=== PATIENT | female | born 1970 | race Caucasian/White ===

== ENCOUNTER 2016-06-30 09:05 | Observation (INO) | payer OTHER ==
[2016-06-09 14:38] VITALS: BMI 32.0
--- NOTE | 2016-06-09 15:12 | PAT Medication Instructions ---
Service Date Jun 09, 2016. Current Home Medication List Albuterol Inhaler (Ventolin Inhaler), 2 PUFFS INH Q4H PRN for PRN Atorvastatin (Lipitor), 40 MG PO HS Baclofen (Lioresal), 10 MG PO TID Bupropion (Wellbutrin), 100 MG PO HS Carvedilol (Coreg Cr), 40 MG PO BID Fluticasone Propionate (Nasal) (Flonase), 2 SPRAYS INTNAS DAILY Lisinopril (Lisinopril), 40 MG PO HS Metformin Hcl (Glucophage), 500 MG PO QPM Montelukast Sodium (Singulair), 10 MG PO HS Pantoprazole (Protonix), 40 MG PO QAM Quetiapine Fumarate (Seroquel), 400 MG PO HS Ranitidine Hcl (Zantac), 150 MG PO HS Sertraline Hcl (Zoloft), 150 MG PO QPM Trazodone Hcl (Trazodone), 400 MG PO HS Ziprasidone Hcl (Geodon), 80 MG PO HS Medication Instructions For Your Scheduled Surgery - Hold the following medications 48 hours prior to surgery: Metformin Hcl (Glucophage), 500 MG PO QPM - Hold the following medications the morning of surgery: Baclofen (Lioresal), 10 MG PO TID - Take the following medications the morning of surgery with a sip of water OTHERWISE NOTHING TO EAT OR DRINK AFTER MIDNIGHT: Pantoprazole (Protonix), 40 MG PO QAM Carvedilol (Coreg Cr), 40 MG PO BID Albuterol Inhaler (Ventolin Inhaler), 2 PUFFS INH Q4H PRN for PRN (use if needed ; BRING TO HOSPITAL) Fluticasone Propionate (Nasal) (Flonase), 2 SPRAYS INTNAS DAILY - Take the following medications as scheduled the night before surgery: Carvedilol (Coreg Cr), 40 MG PO BID Atorvastatin (Lipitor), 40 MG PO HS Bupropion (Wellbutrin), 100 MG PO HS Montelukast Sodium (Singulair), 10 MG PO HS Quetiapine Fumarate (Seroquel), 400 MG PO HS Ranitidine Hcl (Zantac), 150 MG PO HS Sertraline Hcl (Zoloft), 150 MG PO QPM Trazodone Hcl (Trazodone), 400 MG PO HS Ziprasidone Hcl (Geodon), 80 MG PO HS Baclofen (Lioresal), 10 MG PO TID Albuterol Inhaler (Ventolin Inhaler), 2 PUFFS INH Q4H PRN for PRN - Do not take the following medications the night before surgery: Lisinopril (Lisinopril), 40 MG PO HS If you have any questions please call us at [phone] (Carmencita Gar PA-C) or [phone] or [phone]
[2016-06-09 15:41] LABS: BASO % 0.4 %; BASO ABS # 0.03 K/uL (0-0.2); COMPLETE YES; EOS % 3.6 %; HEMATOCRIT 47.5 % (37-47); IG% 0.2 %; LYMPH % 39.1 %; LYMPH ABS # 3.26 K/uL (1.2-3.4); MEAN CELL VOLUME 95.6 fL (80-100); MEAN CORPUSCULAR HEMOGLOBIN 32.4 pg (25-34); MEAN CORPUSCULAR HGB CONC 33.9 g/dl (32-36); MEAN PLATELET VOLUME 12.6 fL (7.4-10.4); MONO % 4.4 %; NEUT % 52.3 %; PLATELET COUNT 219 K/uL (130-400); RED BLOOD COUNT 4.97 M/uL (4.2-5.4); WHITE BLOOD COUNT 8.33 K/uL (4.8-10.8)
--- NOTE | 2016-06-09 15:47 | DIAGNOSTIC IMAGING REPORT ---
CHEST 2 VIEWS ROUTINE HISTORY: Preop. COMPARISON: Chest 11/14/2014. FINDINGS: The heart is normal in size. Lobular density within the right cardiophrenic angle favors a fixed hernia. This remains unchanged. Multiple old, healed right-sided rib fractures. No new focal lung consolidations. Linear densities at the right lung base consistent with subsegmental atelectasis. No pleural effusions. No pneumothorax. There is cervical spinal fusion hardware. There is a catheter along the right side of the neck, chest, and abdomen consistent with a ventriculoperitoneal shunt. IMPRESSION: 1. No acute process within the chest. 2. Stable lobular density within the right anterior cardiophrenic sulcus suggestive of a hernia. 3. Right-sided ventriculoperitoneal shunt catheter is noted. Electronically signed by: Bill Matta M.D. 06/09/2016 3:46 PM
[2016-06-09 15:57] LABS: INR 0.9 (0.9-1.1); PROTHROMBIN TIME (PATIENT) 9.8 SECONDS (9.0-12.0)
[2016-06-09 16:04] LABS: BUN/CREATININE RATIO 16.5 (10-20); CALCIUM 8.9 mg/dl (8.5-10.1); CREATININE 0.79 mg/dl (0.60-1.20)
--- NOTE | 2016-06-29 23:03 | HISTORY & PHYSICAL EXAMINATION ---
DATE OF ADMISSION: 06/30/2016 SUBJECTIVE CHIEF COMPLAINT: Right foot pain. HISTORY OF PRESENT ILLNESS: This is a patient, who has had a previous right foot surgery approximately 4 years ago, where she had mid-foot fusions performed. She originally had done well with the fusions; however, she developed [id number] mid-foot pain. She also began having contractures of her lesser toes. She later had a CT scan, which revealed arthritic change within the first tarsometatarsal joint as well as a nonunion of the second tarsometatarsal joint fusion. She is now being set up for surgical management. PAST MEDICAL HISTORY: History of [place], hypertension, hypercholesterolemia, asthma, anxiety and depression, acid reflux. FAMILY HISTORY: Noncontributory. SOCIAL HISTORY: The patient denies alcohol and tobacco use. ALLERGIES: No known drug allergies. CURRENT MEDICATIONS: Seroquel, trazodone, Geodon, Zoloft, Wellbutrin, Prinivil, Lipitor, metformin, baclofen, Protonix and Zantac. OBJECTIVE PHYSICAL EXAMINATION: GENERAL: The patient is alert and oriented x3, in no acute distress. She is a well-dressed, well-nourished 45-year-old female. Her affect is appropriate. CARDIOVASCULAR: Heart has a regular rhythm and rate without murmurs. Dorsalis pedis and posterior tibial pulses are +2/4. Capillary refill is less than 2 seconds. LUNGS: Clear to auscultation, bilateral. LYMPHATICS: No evidence of any swollen lymph nodes. MUSCULOSKELETAL: The patient has an antalgic gait favoring the right lower extremity. Upon inspection of the right lower extremity, there is swelling noted of the mid foot. There are well-healed surgical incisions over the dorsal and medial aspects of the right mid foot. The patient is noted to have flexion contractures of the second, third and fourth toes. There also appears to be a dislocation of the MTP joint of the second toe. With palpation, she has tenderness along the mid foot as well as tenderness along the second MTP joint and the 2nd, 3rd and 4th toes. There is decreased range of motion and strength noted of the right lower extremity. SKIN: As previously noted, there are well-healed surgical incisions over the dorsal and medial aspects of the right mid foot. NEUROLOGIC: Sensation is normal and intact distally. X-RAY EXAM: Multiple views of the right foot and CT scan of the right foot demonstrate osteoarthritic changes of the first tarsometatarsal joint fusion. There is hardware crossing from the first cuneiform to the second and to the third cuneiform as well as hardware at the second and third tarsometatarsal joints with fusion. The second tarsometatarsal joint appears to be only partially healed. ASSESSMENT AND DIAGNOSES: 1. Right foot osteoarthritis of the first tarsometatarsal joint. 2. Nonunion of attempted fusion, second tarsometatarsal joint. 3. Retained hardware in the second and third tarsometatarsal joints and the first and third intercuneiform joints. 4. Claw toe deformities of the second, third and fourth toes, right foot. 5. Dislocated metatarsophalangeal joint, second metatarsophalangeal, right foot. PLAN: The above assessment was discussed with the patient. At this time, it was recommended that the patient undergo a right foot first tarsometatarsal joint fusion with revision of fusion of the second tarsometatarsal joint; second MTP DuVries arthroplasty of the metatarsal head; second, third and fourth toe PIP joint DuVries arthroplasties; second, third and fourth toe flexor tenotomies; second, third and fourth toe extensor lengthening; exostectomy of the cuneiforms and possible removal of hardware from the right mid foot. All potential risks, benefits, complications, alternatives and rehab have been discussed with the patient. At this time, she wishes to proceed with the surgery as indicated. She will be scheduled for the surgery on 06/30/2016.
[2016-06-30] VITALS (8 sets, daily range): BP systolic 107–124; BP diastolic 67–85; PULSE 75–88; TEMP 36.4–36.7; O2SAT 91–94; BMI 32.0; BMI 32.4
[~2016-06-30] VITALS: Ht 154.9 cm; Wt 77.7 kg
[~2016-06-30 09:05] MED LIST: ALBUAER19 INH; ATOR-24 PO; BACL10TA PO; BUPIVACAINE 0.5 % 5 MG/1 ML PF 10ML VIAL ONE; BUPR-83 PO; CLINDAMYCIN 600 MG/54 ML D5W IV SCH; CRGSR/40 PO; FLUT0.0529 INTNAS; GDN/80 PO; GLC/500 PO; LSN40 PO; MONT1TAB3 PO; PANT40TA PO; QUET1TAB13 PO; RANI150T3 PO; SERT1TAB68 PO; TRAZ100T29 PO
--- NOTE | 2016-06-30 13:39 | History & Physical Bridge Note ---
H&P Re-Evaluation Bridge Note: I have examined the patient, reviewed the History & Physical and in the interval since the performance of the History & Physical I have noted the following changes of clinical significance: No changes noted
[2016-06-30] MEDS ORDERED: FENTANYL CITRATE INJ 50 MCG/1 ML 2 ML VIAL ONE ×2 (14:20→15:34)
[2016-06-30] MEDS ORDERED: MIDAZOLAM HCL 1 MG/ML 2ML VIAL ONE (14:20)
[2016-06-30] MEDS ORDERED: LACTATED RINGER'S 1000ML 1,000 ML IV PRN (14:33)
[2016-06-30] MEDS ORDERED: ALBUT/IPRATROP 3MG/0.5MG NEB 3 ML VIAL INH PRN (14:45)
[2016-06-30] MEDS ORDERED: FENTANYL CITRATE INJ 50 MCG/1 ML 2 ML VIAL IV PRN ×2 (14:45→20:00)
[2016-06-30] MEDS ORDERED: ONDANSETRON INJ 2 MG/ML 2 ML VIAL IV PRN ×3 (14:45→20:00)
[2016-06-30] MEDS ORDERED: ROCURONIUM BROMIDE 10 MG/ML 5 ML VIAL ONE (15:12)
[2016-06-30] MEDS ORDERED: LIDOCAINE HCL 2% 2 ML VIAL (20MG/ML) ONE (15:12)
[2016-06-30] MEDS ORDERED: PROPOFOL IV EMULSION 10 MG/ML 20 ML VIAL IV ONE ×2 (15:12→15:56)
[2016-06-30] MEDS ORDERED: ONDA8TAB6 PO (15:51)
[2016-06-30] MEDS ORDERED: OXYC-57 PO (15:51)
--- NOTE | 2016-06-30 15:53 | Discharge Instructions ---
Discharge Instructions Admission Reason for Admission: Right Ankle/Foot Osteoarthritis, Rt Foot Hammer To Discharge Discharge Diagnosis / Problem: right midfoot osteoarthritis, claw toes right foot Discharge Goals Goal(s): Decrease discomfort Activity Recommendations Activity Limitations: as noted below Lifting Limitations: until after follow-up appointment Exercise/Sports Limitations: until after follow-up appointment May Resume Sexual Activity: when tolerated Shower/Bathe: keep incision dry (Keep dressing in place at all times until seen back.) Driving or Machine Use: No driving until cleared by Dr. Washington's clinic. Weightbearing Status: Right non-weightbearing . Instructions / Follow-Up Instructions / Follow-Up ACTIVITY RECOMMENDATIONS: Limitations: No weight bearing to affected limb at all times. SPECIAL CARE INSTRUCTIONS: * Some drainage onto the dressing is normal and is no cause for alarm. * Some swelling is natural especially after walking. * When resting, keep your foot elevated above the level of your heart. * Call [facility] if you notice: -Increased drainage -Fever over 101 degrees F -Severe constant pain BANDAGE: * Leave bandage/cast in place unless otherwise directed. * Keep bandage/cast dry at all times. FOLLOW UP VISIT WITH DR. WASHINGTON If appointment is not already scheduled: Please call [facility] after you get home today to schedule a follow-up appointment for [address] Washington at . Current Hospital Diet Patient's current hospital diet: Discharge Diet Recommended Diet: Regular Diet Pending Studies Studies pending at discharge: no Medical Emergencies . Who to Call and When: Medical Emergencies: If at any time you feel your situation is an emergency, please call [phone] immediately. . Non-Emergent Contact Non-Emergency issues call your: Surgeon Call Non-Emergent contact if: temperature is above 101, your pain is not controlled, your pain is worsening, wound has increased drainage, wound has increased pain . "Provider Documentation" section prepared by Cali Krishnan. VTE Core Measure Inpt VTE Proph given/why not?: Other Anticoagulation (Aspirin)
[2016-06-30] MEDS ORDERED: ONDANSETRON INJ 2 MG/ML 2 ML VIAL ONE (15:56)
[2016-06-30] MEDS ORDERED: DEXAMETHASONE SOD INJ 4 MG/ML VIAL ONE (15:56)
[2016-06-30] MEDS ORDERED: HYDROmorphone INJ 2 MG/ML SYR/VIAL ONE (16:14)
--- NOTE | 2016-06-30 17:57 | Progress Note ---
Progress Note Dear Physician, Ms Bourne underwent surgery at [facility] on June 2016 under general anesthesia. This letter is to inform you that she was found to be a difficult intubation. Mask ventilation after induction was not difficult. Review of our own records show that in 2012, Ms Bourne was intubated with the assistance of a Glidescope. Since then she underwent multi level cervical fusion and has limited neck mobility. Of note, an LMA#4 has been successfully used for her on a previous surgery according to our records. After induction, direct laryngoscopy by both an anesthesiologist and a highly experienced nurse plycor operator were unable to improve upon a Cormack grade III view. Glidescope revealed vocal cords, but an anterior glottic opening and limited neck mobility prevented passage of the endotracheal tube. Successfully intubation was finally achieved by visualizing the vocal cords with Glidescope, and using a flexible fiberoptic bronchoscope as a "stylette" for intubation. Sincerely, Casper Telles MD Anesthesiologist
[2016-06-30] MEDS ORDERED: BACITRACIN 50000 UNIT VIAL IR ONE (19:20)
[2016-06-30] MEDS ORDERED: BUPIVACAINE 0.5% INJ INJ ONE (19:21)
--- NOTE | 2016-06-30 19:44 | [facility] Post Operative Brief Note ---
Immediate Operative Summary Operative Date Jun 30, 2016. Pre-Operative Diagnosis Right foot: 1. osteoarthritis of first tarsometatarsal joint 2. nonunion of attempted fusion, second tarsometatarsal joint 3. retained hardware in the second and third tarsometatarsal joints, and the first, second and third intercuneiform joints 4. claw toe deformities of the second, third, and fourth toes, right foot 5. dislocated metatarsophalangeal joint, second metatarsophalangeal, right foot Post-Operative Diagnosis Right foot: 1. osteoarthritis of first tarsometatarsal joint 2. nonunion of attempted fusion, second tarsometatarsal joint 3. retained hardware in the second and third tarsometatarsal joints, and the first, second and third intercuneiform joints 4. claw toe deformities of the second, third, and fourth toes, right foot 5. dislocated metatarsophalangeal joint, second metatarsophalangeal, right foot 6. 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 DJD 2nd metatarsophalangeal joint Procedure(s) Performed Right Foot 1st TMT Fusion, Revision Fusion 2nd TMT, 2nd MTP DuVries Arthroplasty; Application Augment to bone fusion sites; 2-3-4 PIP DuVries, 2-3-4 Flexor Tenotomy; 2-3-4 Extensor Lengthening, Exosectomy 2nd and 3rd Cuneiforms; 1/2/3 naviculocuneiform fusions, Removal of Hardware x3 screws Surgeon Dr. Yessenia Wilkes Pigment Grinder Surgeon(s) Rm Krishnan PA-C Estimated Blood Loss 40ml Findings See Dict Specimens a. explanted hardwared right foot Drains None Anesthesia GLMA w/ popliteal and medial saphenous blocks Complication(s) None Disposition Recovery Room / PACU
[2016-06-30] MEDS ORDERED: ZOLPIDEM TARTRATE 5 MG TAB PO PRN (20:00)
[2016-06-30] MEDS ORDERED: ATROPINE SULFATE 0.1 MG/ML 5ML SYR IV PRN (20:00)
[2016-06-30] MEDS ORDERED: EpHEDrine SULFATE INJ 50 MG/ML AMP IV PRN (20:00)
[2016-06-30] MEDS ORDERED: NO NSAIDS SCH (20:00)
[2016-06-30] MEDS ORDERED: MAGNESIUM HYDROXIDE SUSP 30 ML UDC PO PRN (20:00)
[2016-06-30] MEDS ORDERED: MoRPHine SULFATE 2 MG/ML CARP IV PRN (20:00)
[2016-06-30] MEDS ORDERED: SOD PHOSPHATE/SOD BIPHOSPHATE ENEMA 132 ML BTL PR PRN (20:00)
[2016-06-30] MEDS ORDERED: ALUMINUM/MAGNESIUM/SIMETH (MAALOX MAX) 30 ML UDC PO PRN (20:00)
[2016-06-30] MEDS ORDERED: BISACODYL 10 MG SUPP PR PRN (20:00)
[2016-06-30] MEDS ORDERED: IV FLUIDS COMPLETED PRN (20:30)
--- NOTE | 2016-06-30 20:42 | Anesthesiology Progress Note ---
Anesthesia Post Op Note Date & Time Jun 30, 2016 at 20:29 Vital Signs Pain Intensity: 0 Vital Signs Past 12 Hours Date Time Temp Pulse Resp B/P Pulse Ox O2 Delivery O2 Flow Rate FiO2 06/30/16 20:25 36.7 79 12 122/75 90 Nasal Cannula 4 06/30/16 20:15 78 13 120/75 92 Nasal Cannula 5 06/30/16 20:05 78 18 124/71 93 Mask 10 06/30/16 19:55 81 14 115/71 95 Mask 10 06/30/16 19:45 36.4 89 12 128/74 93 Mask 10 06/30/16 14:42 76 16 92 Room Air 06/30/16 09:25 36.6 88 20 120/85 94 Room Air Notes Mental Status: alert / awake / arousable, participated in evaluation Pt Amnestic to Procedure: Yes Nausea / Vomiting: adequately controlled Pain: adequately controlled Airway Patency, RR, SpO2: stable & adequate BP & HR: stable & adequate Hydration State: stable & adequate Anesthetic Complications: no major complications apparent Given her poor pulmonary status, the late time of the procedure, and her poor oxygen saturation it was discussed with Dr Wilkes that 23 hour obs would be in the patient's best interest prior to the procedure going to the OR. At the end of the case, the patient was given albuterol through her ETT and and was deep suctioned. There were no complications and the patient's oxygenation saturation was 91 at the time of discharge from PACU on 4L NC. Lung exam post op was unchanged from preop. As noted in previous progress note, the patient was a difficult intubation. This information was relayed to the patient's father and to the patient herself. A letter from anesthesiology was given to the patient to provide for any future procedures.
[2016-06-30] MEDS ORDERED: SENNA 8.6 MG TAB PO SCH (21:00)
--- NOTE | 2016-06-30 21:42 | DIAGNOSTIC IMAGING REPORT ---
RIGHT FOOT MIN 3 VIEWS ROUTINE CLINICAL HISTORY: Right foot revision Right Fluoroscopy time: 25 seconds FINDINGS: Osteotomy at the heads of the second through fourth proximal phalanges with associated pinning. Medial cortical plates transfixed with screws through the mid foot. The hardware appears intact. IMPRESSION: Fluoroscopy provided for postoperative changes within the right foot. Electronically signed by: Bill Matta M.D. 06/30/2016 9:40 PM Dictated Date/Time: 06/30/2016 9:39 PM
--- NOTE | 2016-06-30 22:00 | DIAGNOSTIC IMAGING REPORT ---
RIGHT FOOT MIN 3 VIEWS ROUTINE CLINICAL HISTORY: Postoperative evaluation. Right foot revision. COMPARISON: Right foot radiographs August 04, 2012. FINDINGS: Fine detail is obscured by an overlying cast. Widening between the bases of the right first and second metatarsals is noted. Osteotomies of the heads of the second through fourth proximal phalanges are noted with associated pinning. Hardware is intact. Plate and screw fixation of the midfoot is noted. Hardware is intact. There are no unexpected radiopaque foreign bodies. Deformity of the head of the second metatarsal is noted. Deformity of the distal shaft and head of the fifth metatarsal is chronic. There may be subluxation at the talonavicular articulation, suboptimally assessed on this exam. IMPRESSION: Postsurgical findings within the right foot, as described above. Electronically signed by: Christopher Guajardo M.D. 06/30/2016 9:58 PM Dictated Date/Time: 06/30/2016 9:52 PM
[2016-06-30] MEDS: CEFAZOLIN IV 2,000 MG in DEXTROSE 5% 50ML 50 ML IV SCH ×2 (22:23→23:30)
[2016-06-30] MEDS: OXYCODONE HCL IR 5 MG TAB (IMMEDIATE RELEASE) PO PRN (22:23)
[2016-06-30] MEDS: ACETAMINOPHEN 500 MG TAB PO SCH (22:23)
[2016-06-30] MEDS: ASPIRIN 81 MG ECTAB PO SCH (22:23)
[2016-06-30] MEDS: D5W AND 1/2NSS + 20MEQ KCL 1,000 ML IV SCH (22:24)
[2016-06-30] MEDS: DOCUSATE SODIUM 100 MG CAP PO SCH (22:25)
[2016-07-01 02:33] VITALS: BP 91/55; PULSE 83; TEMP 36.8; O2SAT 91
--- NOTE | 2016-07-01 03:30 | OPERATIVE REPORT ---
DATE OF OPERATION: 06/30/2016 AGE: 45 PREOPERATIVE DIAGNOSES: 1. Degenerative joint disease, first tarsometatarsal joint. 2. Nonunion, second tarsometatarsal joint fusion. 3. Clawtoe deformities, second, third and fourth toes, including flexor tendon contractures and extensor tendon contractures. 4. Dislocation of the second metatarsophalangeal joint. 5. Degenerative joint disease of the second metatarsophalangeal joint. 6. Exostoses of the dorsal second and third cuneiforms. 7. Retained screws x3. POSTOPERATIVE DIAGNOSES: Same, in addition to degenerative joint disease of the first, second and third naviculocuneiform joints. PROCEDURES: 1. Right foot first tarsometatarsal joint fusion. 2. Revision fusion, second tarsometatarsal joint. 3. Fusion of the first, second and third naviculocuneiform joints. 4. Second metatarsophalangeal joint DuVries arthroplasty. 5. Application of Augment bone substitute to the fusion sites mentioned previously. 6. Second, third and fourth proximal interphalangeal joint DuVries arthroplasties. 7. Second, third and fourth flexor tenotomies. 8. Second, third and fourth toe extensor tendon lengthenings. 9. Exostosectomy of the dorsal second and third cuneiforms. 10. Removal of screws x3. SURGEON: Dr. Wilkes. AVIATION ELECTRICAL TECHNICIAN: Cali Krishnan PA-C, who was present for patient positioning, sterile prep and drape, management of retractors and instruments. He was present through the critical portions of the case, including wound closure, application of sterile dressing and transport of the patient to recovery. ANESTHESIA: General LMA with popliteal block with supplemental saphenous nerve block. SPECIMENS: Explanted hardware. DRAINS: None. COMPLICATIONS: None. BLOOD LOSS: 40 mL PERTINENT HISTORY: This is a 45-year-old woman, who has significant degenerative arthritis and deformity of her right foot. She had undergone prior surgery several years prior with multiple mid-foot joint fusions. She had worsening of her symptoms, nonunion developed of her second tarsometatarsal joint fusion and loosened painful hardware. The patient attempted conservative management including shoe wear modification, activity modification, anti-inflammatories, rest and shoe inserts. She failed all measures. She had radiographically significant findings including nonunion of the second tarsometatarsal joint, loosened hardware, worsening degenerative joint disease throughout the mid foot as noted previously, and significant pain, which is limiting her ability to ambulate in normal footwear. The patient was scheduled for surgery as indicated. All potential risks, benefits, complications, alternatives, rehab, potential for incomplete relief of symptoms, need for further surgery, DVT, PE, , persistent pain, swelling, scarring, weakness, neurovascular injury, wound dehiscence, hardware breakage, nonunion, malunion were discussed with patient and the patient decided to proceed with procedure as indicated. PROCEDURE: After a popliteal block was administered in the preop holding area, the patient was taken to the operating suite and placed supine on the operating room table. After review of the consent and identification of the proper operative site, the patient was anesthetized, LMA was placed. Tourniquet was placed high on the right thigh over a cast padding. Right lower extremity was then sterilely prepped and draped in the usual fashion, elevated and exsanguinated with an Esmarch bandage. Tourniquet inflated to 300 mmHg. Next, a dorsal incision was made over the right mid foot at the site of previous incision. This incision was then deepened through subcutaneous tissue. Meticulous hemostasis was achieved with electrocautery. Full thickness skin flaps were developed. Careful dissection was performed, first medially to localize and mobilize the neurovascular bundle, which was located and then retracted and protected. Next, the screw from the second metatarsal joint nonunion was then removed. The nonunion site was then carefully debrided with a rongeur. Curette was used to decorticate the subchondral bone, and the wound was irrigated with sterile normal saline. Next, the screw for the third tarsometatarsal joint was stable. The fusion was intact. Therefore, it was left in place. Next, the attention was then directed toward the medial aspect of the foot. An incision was made from the first metatarsal head medially along the first metatarsal over the medial cuneiform and over the medial navicular. The incision was deepened through the subcutaneous tissue. Meticulous hemostasis was achieved with electrocautery. Full thickness skin flaps were developed. The tibialis anterior tendon was then marked with Krackow locking stitches of #1 Vicryl suture and it was then transected, leaving the insertion intact in the medial cuneiform and along the medial border of the foot. This was then retracted out of the way and the proximal stump of the tendon was then buried in the soft tissues proximally to prevent any desiccation of the tendon. Next, the medial periosteum and joint capsule were then elevated from the first tarsometatarsal joint, the first navicular cuneiform joint. There was noted be degenerative arthritis of the first TMT and the first navicular cuneiform joints. The soft tissues were elevated both superiorly and inferiorly, and there was noted to be significant dorsiflexion through the first tarsometatarsal joint as well as degenerative arthropathy. Next, Hohmann retractors were placed superiorly and inferiorly and then a medially-based biplanar closing wedge osteotomy was performed to the first and second tarsometatarsal joints. Next, attention was then directed toward the first navicular cuneiform joint and a sagittal saw was used to resect a small wafer of the joint. Next, the medial column was then provisionally pinned with threaded guide pins followed by resection of the medial prominence of the medial column from the first metatarsal, first cuneiform and the navicular bones respectively with a sagittal saw. Next, a single titanium compression screw was placed from the plantar base of the first metatarsal through the first cuneiform into the navicular bone. Prior to compression of the screw, all wounds were copiously irrigated with sterile normal saline until clear and then Augment bone graft substitute was placed in the fusion sites of the first tarsometatarsal, first navicular cuneiform and the second tarsometatarsal joint. Autograft resected from the medial border of the medial column was then morcellized and also placed in these fusion sites. Next, a screw was compressed under live fluoroscopic assistance followed by application of a medially-based medial column titanium plate, placed under live fluoroscopic assistance with multiple bone screws transfixing the first, second and third cuneiform bones as well as the first, second and third metatarsals and the navicular. The plate was placed in compression, stabilizing the reconstruction of the medial arch. Next, a single 3.5 mm titanium screw was placed from the base of the second metatarsal into the second cuneiform and into the navicular. Next, the medial screws placed from the prior surgery were removed from the medial column from the Lisfranc joint and from the intercuneiform joint. Next, the attention was then directed toward the lesser toes. A transverse incision was made in the dorsum of the second, third and fourth proximal interphalangeal joints. These incisions were then deepened through the skin, extensor mechanism and capsule of the respective joints and a small ellipse of dorsal tissue was then excised with a 15 blade scalpel. Next, the collateral ligaments were sacrificed in the second, third and fourth toes, revealing the distal aspect of the proximal phalanges of the second, third and fourth toes, which were then resected using a bone biting rongeur off the second, third and fourth toes respectively. Next, tenotomy scissors were then used to carefully dissect through the plantar plate of the second, third and fourth toes, revealing the flexor tendons. The flexor tendons were then transected off the second, third and fourth toes, thus performing flexor tenotomies. Next, a 15 blade scalpel was used to make an incision on the dorsum of the foot between the second and third metatarsal heads and a second dorsal incision was made lateral to the fourth metatarsal head. This incision was then carefully deepened through subcutaneous tissue. Meticulous hemostasis was achieved with electrocautery. Full thickness skin flaps were developed. First, the second extensor tendon was then lengthened in a Z-lengthening fashion with an #11 blade scalpel. Next, the dorsal capsule of the second metatarsophalangeal joint was then incised with a #15 blade scalpel, elevated and retracted medially and laterally revealing the second metatarsal head which was noted to be eburnated with dorsal chronic dislocation of the second metatarsophalangeal joint. Next, the collateral ligaments were sacrificed and a sagittal saw was then used to resect the distal portion of the second metatarsal head. The second metatarsal head was then smoothed and contoured with a rongeur, thus performing a second metatarsophalangeal joint arthroplasty. After this was completed, the joint was reduced and attention was then directed toward the third extensor tendon. Careful dissection was performed, preserving the neurovascular bundle between the second and third metatarsal heads and a Z lengthening was performed of the third extensor tendon with an #11 blade scalpel. Next, attention was then directed toward the fourth extensor tendon, careful dissection was performed with tenotomy scissors and forceps, careful retraction and protection of neurovascular bundles was performed and then a Z-lengthening was performed of the fourth extensor tendon with an #11 blade scalpel. Next, with the second, third and fourth toes held in neutral dorsiflexion, the second, third and fourth extensor tendons were then reapproximated in a slightly lengthened position with interrupted 3-0 Mersilene suture using horizontal mattress sutures. Next, all wounds were copiously irrigated with sterile normal saline, and this was followed by pinning of the second, third and fourth toes with antegrade pinning of the second, third and fourth toes and then a retrograde passage of the K-wires into the second, third and fourth metatarsals under live fluoroscopic assistance. The stabilizing pins were then bent, cut and capped with Jurgan's balls. Next, final x-rays obtained, AP and lateral projections, followed by reapproximation of the tibialis anterior, first with #1 Vicryl and then a modified Kaiser suture was placed with #2 FiberWire suture to further stabilize the tibialis anterior. Next, the deep soft tissue was closed over the plate, medial aspect of the foot with 2-0 Vicryl. The dermis was closed using buried interrupted 3-0 Vicryl and the skin was closed using 4-0 nylon. The dorsal skin of the second, third and fourth toes were closed using 4-0 nylon and the dorsal incisions x3 were closed, of the mid foot, with interrupted 4-0 nylon sutures. Next, a sterile compressive dressing was applied, overwrapped with a bulky Neftaly Blank plaster splint in neutral dorsiflexion. The tourniquet was released. The patient was awakened and taken to recovery in stable condition after a supplemental saphenous nerve block was performed with approximately 20 mL of 0.5% Marcaine plain. The patient was taken to recovery in stable condition. I attest to the content of the Intraoperative Record and any orders documented therein. Any exceptio ns are noted below.
[2016-07-01] MEDS: ACETAMINOPHEN 500 MG TAB PO SCH (05:42)
[2016-07-01] MEDS: CEFAZOLIN IV 2,000 MG in DEXTROSE 5% 50ML 50 ML IV SCH (05:55)
[2016-07-01] MEDS: OXYCODONE HCL IR 5 MG TAB (IMMEDIATE RELEASE) PO PRN ×2 (05:57→10:42)
[2016-07-01 06:00] LABS: HEMATOCRIT 42.7 % (37-47); MEAN CELL VOLUME 95.3 fL (80-100); MEAN CORPUSCULAR HEMOGLOBIN 31.3 pg (25-34); MEAN CORPUSCULAR HGB CONC 32.8 g/dl (32-36); MEAN PLATELET VOLUME 11.9 fL (7.4-10.4); PLATELET COUNT 211 K/uL (130-400); RED BLOOD COUNT 4.48 M/uL (4.2-5.4); WHITE BLOOD COUNT 10.83 K/uL (4.8-10.8)
[2016-07-01 06:25] LABS: BUN/CREATININE RATIO 15.1 (10-20); CREATININE 0.82 mg/dl (0.60-1.20); POTASSIUM 3.9 mmol/L (3.5-5.1)
[2016-07-01] MEDS: D5W AND 1/2NSS + 20MEQ KCL 1,000 ML IV SCH (07:22)
[2016-07-01 07:29] VITALS: BP 102/63; PULSE 78; TEMP 36.6; O2SAT 96
--- NOTE | 2016-07-01 08:11 | Orthopedic Progress Note ---
Orthopedic Progress Note Date of Service Jul 01, 2016. Subjective Post OP Day: 1 Reports: feeling well, pain controlled w PO medications (Feels as though the foot is still numb. No motion in the foot yet.), Denies: SOB, calf pain, chest pain, complaints, light headedness, nausea / vomiting Objective N/V intact, splint C/D/I, capillary refill less than 2 sec., dressing C/D/I, A& O x3 Right foot--all 5 toes are warm. Special attention was made to toes 2, 3 and 4 since pins are in them and procedures were done to each. Cap refill is a little more than 2 seconds on the 2nd toe but less than 2 seconds on the 3rd and 4th toe. Splint is well aligned and clean. Date Time Temp Pulse Resp B/P Pulse Ox O2 Delivery O2 Flow Rate FiO2 07/01/16 07:29 36.6 78 14 102/63 96 Nasal Cannula 4.0 78 07/01/16 02:33 36.8 83 14 91/55 91 Nasal Cannula 4.0 07/01/16 00:08 Nasal Cannula 4.0 06/30/16 23:46 36.7 79 16 112/67 92 Nasal Cannula 4.0 06/30/16 22:51 36.7 83 16 107/69 93 Nasal Cannula 4.0 06/30/16 21:57 Nasal Cannula 4.0 06/30/16 21:48 36.6 75 16 114/73 92 Nasal Cannula 4.0 06/30/16 21:19 36.4 76 16 120/77 92 Nasal Cannula 4.0 06/30/16 21:06 36.6 76 20 124/75 Nasal Cannula 4.0 06/30/16 20:45 36.6 76 20 124/75 91 Nasal Cannula 4.0 06/30/16 20:25 36.7 79 12 122/75 90 Nasal Cannula 4 06/30/16 20:15 78 13 120/75 92 Nasal Cannula 5 06/30/16 20:05 78 18 124/71 93 Mask 10 06/30/16 19:55 81 14 115/71 95 Mask 10 06/30/16 19:45 36.4 89 12 128/74 93 Mask 10 06/30/16 14:42 76 16 92 Room Air 06/30/16 09:25 36.6 88 20 120/85 94 Room Air Laboratory Results 24 Hours: Test 07/01/16 05:40 Hematocrit 42.7 % Hemoglobin 14.0 g/dL Assessment & Plan Assessment: POD #1 s/p 1. Right foot first tarsometatarsal joint fusion. 2. Revision fusion, second tarsometatarsal joint. 3. Fusion of the first, second and third naviculocuneiform joints. 4. Second metatarsophalangeal joint DuVries arthroplasty. 5. Application of Augment bone substitute to the fusion sites mentioned previously. 6. Second, third and fourth proximal interphalangeal joint DuVries arthroplasties. 7. Second, third and fourth flexor tenotomies. 8. Second, third and fourth toe extensor tendon lengthenings. 9. Exostosectomy of the dorsal second and third cuneiforms. 10. Removal of screws x3 Plan: Patient stayed overnight because of difficult intubation and medical history. The procedure was not completed until nearly 1999 last night. She is doing well today so will plan on d/c home after PT this AM. Inhouse Planning Pain Management: Morphine, Oxy IR DVT Prophylaxis: TEDs ASA Discharge Planning Discharge Planning: home (Today after PT.) Pain Management: Percocet DVT Prophylaxis: ASA
[2016-07-01] MEDS ORDERED: ASPEC81 PO (08:12)
[2016-07-01 08:18] VITALS: O2SAT 96
[2016-07-01] MEDS: ASPIRIN 81 MG ECTAB PO SCH (08:34)
[2016-07-01] MEDS: DOCUSATE SODIUM 100 MG CAP PO SCH (08:34)
[2016-07-01] MEDS ORDERED: MULTIVITAMIN TAB PO SCH (09:00)
[2016-07-01] MEDS ORDERED: PANTOprazole SOD 40 MG TAB PO SCH (09:00)
[2016-07-01 10:25] VITALS: BP 102/63; PULSE 78; TEMP 36.6; O2SAT 96
[2016-07-01 10:30] VITALS: Ht 154.9 cm; Wt 77.7 kg
[2016-07-01 10:35] VITALS: O2SAT 94
--- NOTE | 2016-07-02 14:45 | Discharge Summary ---
Orthopedic Discharge Summary Admission Date/Reason Jun 30, 2016 at 19:52 Right Ankle/Foot Osteoarthritis, Rt Foot Hammer To. Discharge Date/Disposition Jul 01, 2016 Home Diagnosis Principal Diagnosis: right midfoot osteoarthritis Procedure(s) Performed Right Foot 1st TMT Fusion, Revision Fusion 2nd TMT, 2nd MTP DuVries Arthroplasty; Application Augment to bone fusion sites; 2-3-4 PIP DuVries, 2-3-4 Flexor Tenotomy; 2-3-4 Extensor Lengthening, Exosectomy 2nd and 3rd Cuneiforms; 1/2/3 naviculocuneiform fusions, Removal of Hardware x3 screws Medication Reconciliation New Medications: Ondansetron Hcl (Zofran) 8 Mg Tab 8 MG PO Q8 PRN for Nausea, #20 TAB Oxycodone/Acetaminophen 5MG/325MG (Percocet 5MG/325MG) Tab 1-2 TABLETS PO Q4H PRN for Pain, #60 TAB Aspirin (Aspirin EC Low Dose) 81 Mg Ectab 81 MG PO Q12 for 42 Days Continued Medications: Albuterol Inhaler (Ventolin Inhaler) Aers 2 PUFFS INH Q4H PRN for PRN, #5 INHALER Atorvastatin (Lipitor) 40 Mg Tab 40 MG PO HS, TAB Baclofen (Lioresal) 10 Mg Tab 10 MG PO TID, TAB Bupropion (Wellbutrin) 100 Mg Tab 100 MG PO HS, TAB Carvedilol (Coreg Cr) 40 Mg Caper 40 MG PO BID, CAP Fluticasone Propionate (Nasal) (Flonase) 50 Mcg/Act Spr 2 SPRAYS INTNAS DAILY Lisinopril (Lisinopril) 40 Mg Tab 40 MG PO HS Metformin Hcl (Glucophage) 500 Mg Tab 500 MG PO QPM, TAB Montelukast Sodium (Singulair) 10 Mg Tab 10 MG PO HS, TAB Pantoprazole (Protonix) 40 Mg Tab 40 MG PO QAM, #30 TAB Quetiapine Fumarate (Seroquel) 400 Mg Tab 400 MG PO HS, TAB Ranitidine Hcl (Zantac) 150 Mg Tab 150 MG PO HS, TAB Sertraline Hcl (Zoloft) 100 Mg Tab 150 MG PO QPM, TAB Trazodone Hcl (Trazodone) 100 Mg Tab 400 MG PO HS, TAB Ziprasidone Hcl (Geodon) 80 Mg Cap 80 MG PO HS, CAP Admission Physical Exam As per Admitting History & Physical. Hospital Course The patient's procedure was done late on the day of 17. Anesthesia noted she was also a difficult intubation. It was felt the patient should stay overnight for observation. On POD #1, her pain was controlled and she was NWB on the surgical LE. She was then d/c'd home on POD #1. Discharge Instructions Please refer to the electronic Patient Visit Report (Discharge Instructions) for additional information. ACTIVITY RECOMMENDATIONS: Limitations: No weight bearing to affected limb at all times. SPECIAL CARE INSTRUCTIONS: * Some drainage onto the dressing is normal and is no cause for alarm. * Some swelling is natural especially after walking. * When resting, keep your foot elevated above the level of your heart. * Call [facility] if you notice: -Increased drainage -Fever over 101 degrees F -Severe constant pain BANDAGE: * Leave bandage/cast in place unless otherwise directed. * Keep bandage/cast dry at all times. FOLLOW UP VISIT WITH DR. WASHINGTON If appointment is not already scheduled: Please call [facility] after you get home today to schedule a follow-up appointment for [address] Washington at .
== END 2016-07-01 10:50 | disposition home or self-care (01) ==
LOC: ENRESERVDT → ENRESERVTM → C.ACU 09:05 → C.MSW 19:52
PROVIDERS: ADMIT Orthopaedic Surgery Sports Medicine; ATTEND Orthopaedic Surgery Sports Medicine
DX: Q66.89 Other specified congenital deformities of feet (principal); M19.071 Primary osteoarthritis, right ankle and foot; M20.61 Acquired deformities of toe(s), unspecified, right foot; S93.124A Dislocation of metatarsophalangeal joint of right lesser toe(s), initial encounter; I10 Essential (primary) hypertension; E78.00 Pure hypercholesterolemia, unspecified; J45.909 Unspecified asthma, uncomplicated; Z88.1 Allergy status to other antibiotic agents; I25.2 Old myocardial infarction; E10.9 Type 1 diabetes mellitus without complications; F41.9 Anxiety disorder, unspecified; F31.9 Bipolar disorder, unspecified; Z98.890 Other specified postprocedural states; Z79.899 Other long term (current) drug therapy; X58.XXXA Exposure to other specified factors, initial encounter